=== PATIENT | male | born 1980 | race African-American/Black ===

== ENCOUNTER 2016-10-15 16:52 | Inpatient (IN) | payer OTHER ==
--- NOTE | ~2016-10-15 | PN ---
Unit #: [id number] #: [id number] Patient: FARHAD MARTINI [id number] [facility] [address] [place] [address] [id number] I MR#: [id number] NAME: FARHAD MARTINI. ROOM: [facility] Age: 36 Sex: M Admission Date: 10/15/2016 : 1980 Attending Physician: Stan Springer M.D. Admitting Physician: Stan Springer M.D. Primary Care Physician: Generic Doctor Not In System [facility] PROGRESS NOTES DATE 10/24/2016 DISCUSSION Farhad Martini is a 26-year-old, male seen on 10/24/2016. The patient interviewed, chart reviewed, obtained information from nursing staff. The patient continues to be guarded, paranoid. The patient isolative. Vital signs 98.6, 52, 16, 99/67. The patient was isolating in his room, flat affect, sad, dysphoric. Denied any complaints. The patient diagnosed with schizophrenia, cocaine use disorder. Complete review of systems is unremarkable. MENTAL STATUS EXAM The patient dressed casually in hospital attire. Attention span and concentration poor. Orientation to place and person. Mood and affect labile. Speech slow. Thought process circumstantial. The patient denied any thoughts of harming self or others but guarded, paranoid, isolative. Recent and remote memory poor. Insight and judgement poor. DIAGNOSIS Schizophrenia chronic paranoid type. Cocaine use disorder moderate. ASSESSMENT/PLAN Advised to continue with current medications and treatment protocol. If needed consider further adjustment of medication. Dictated by... Radha Lezama/dunia TD: 10/27/2016 03:18 JOB #: [id number] Unit #: [id number] #: [id number] Patient: FARHAD MARTINI [facility] PROGRESS NOTES Page 1 of 1 X Shon Espinla MD PROGRESS NOTE
--- NOTE | ~2016-10-15 | PA ---
Unit #: [id number] #: [id number] Patient: PHONG CASE [id number] [facility] [address] [place] [address] [id number] I MR#: [id number] NAME: PHONG CASE. ROOM: P254 Age: 36 Sex: M Admission Date: 10/15/2016 : 1980 Date of Assessment: Attending Physician: Stan Springer M.D. Admitting Physician: Stan Springer M.D. PSYCHIATRIC ASSESSMENT DATE OF SERVICE 10/16/2016. IDENTIFYING DATA Mr. Case is a 36-year-old single male, who is a resident of [place], [place], and was self-referred to the hospital. CHIEF COMPLAINT "Suicidal ideations and homicidal ideations." HISTORY OF PRESENT ILLNESS Mr. Case is a 36-year-old, single, unemployed, homeless male, who was brought in by [facility] for suicidal ideations and homicidal ideations onset by hearing male voices telling him to kill others and self at any means possible and reports that he has a plan for suicide to "cut my wrist with a knife." He also reports self-medicating himself with crack cocaine and as much "as I can get." He also reports that the cocaine has been helping him with the voices, but that he has been decompensating and now has been seen to be a danger to self and others and as such, a recommendation for inpatient level of care for safety and stabilization was made. SUBSTANCE ABUSE HISTORY The patient reports extensive history of cocaine dependence stating that he has been using cocaine since he was 13 years old and "as much as I can get." He denies any other substance abuse. PAST PSYCHIATRIC HISTORY The patient has had a [facility] of [facility], and review of the medical records indicate that he has been diagnosed and treated for bipolar disorder and is currently on Depakote, but is not taking any other psychotropic medications and is not seeing a psychiatrist. PAST MEDICAL HISTORY Epilepsy. ALLERGIES Trilafon, Risperdal, and Thorazine. PERSONAL AND SOCIAL HISTORY A 36-year-old male, who reports that he is single, unemployed, and homeless and has poor social support system. Unit #: [id number] #: [id number] Patient: PHONG CASE MENTAL STATUS EXAMINATION Young male, who was casually dressed with fair personal hygiene, appears to be in no acute distress or discomfort. He was awake and alert on interaction with intact orientation to time, place, and person. His mood was anxious and depressed with a congruent affect. His speech was slow and restricted in content. His thought processes were disorganized with some looseness of associations and flight of ideas and suicidal ideations as well as auditory and visual hallucinations. His insight and judgment remain significantly impaired. DIAGNOSTIC IMPRESSION Psychiatric: Major depressive disorder, recurrent, moderate, with psychosis and cocaine dependence, moderate. Medical: None. Stressors: Moderate psychosocial stressors. TREATMENT PLAN 1. The patient has presented with a history of substance abuse and mood disorder and psychosis and has been decompensating and will need inpatient hospitalization for safety and stabilization. We will start him back on his home medications. We will adjust the medications and monitor response. 2. Supportive therapy was provided to the patient. 3. Safe, structured, and nourishing environment will be provided. ESTIMATED LENGTH OF STAY 5 to 7 days. ABILITY TO HELP SELF Limited. WILLINGNESS TO HELP SELF The patient appears to be willing to help self. STRENGTHS 1. Communicative. 2. Cooperative. PROBLEMS 1. Chronic dysphoric symptoms. 2. Poor social support system. DISCHARGE CRITERIA This will be contingent upon the patient's ability to show resolution of his depression and psychosis and his ability to stay safe to himself, particularly after discharge from the hospital. Dictated by... Radha Mathias/sravanthi TD: 10/16/2016 16:14 JOB #: [id number] Unit #: [id number] #: [id number] Patient: PHONG CASE PSYCHIATRIC ASSESSMENT Page 1 of 1 X Stan Springer MD PSYCHIATRIC ASSESSMENT
--- NOTE | ~2016-10-15 | PN ---
Unit #: [id number] #: [id number] Patient: PHONG CASE [id number] [facility] [address] [place] [address] [id number] I MR#: [id number] NAME: PHONG CASE. ROOM: P254 Age: 36 Sex: M Admission Date: 10/15/2016 : 1980 Attending Physician: Stan Springer M.D. Admitting Physician: Stan Springer M.D. Primary Care Physician: Sienna Doctor Not In System [facility] PROGRESS NOTES DATE 10/17/2016 DISCUSSION Mr. Case is a 36-year-old, male who was seen today and chart was reviewed and case was discussed with the staff. He has been anxious, withdrawn and rather seclusive to himself. Meanwhile, he has been cooperative with treatment recommendations. He has been taking the medication and tolerating them fairly well with no reported side effects. MENTAL STATUS EXAM Young male who was casually dressed with fair personal hygiene, appears to be in no acute distress or discomfort. He was awake and alert with intact orientation. His mood was anxious with congruent affect. He denies any suicidal or homicidal ideation. His insight and judgement remains slightly impaired. TREATMENT PLAN 1. We will continue him on his current treatment protocol. We will monitor his response to the medication and make further adjustments as needed. 2. We will continue to follow up. Dictated by... Radha Mathias/dunia TD: 10/18/2016 22:17 JOB #: [id number] Unit #: [id number] #: [id number] Patient: PHONG CASE [facility] PROGRESS NOTES Page 1 of 1 X Stan Springer MD X PROGRESS NOTE
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
--- NOTE | ~2016-10-15 | PN ---
Unit #: [id number] #: [id number] Patient: PHONG CASE [id number] [facility] [address] [place] [address] [id number] I MR#: [id number] NAME: PHONG CASE. ROOM: P254 Age: 36 Sex: M Admission Date: 10/15/2016 : 1980 Attending Physician: Stan Springer M.D. Admitting Physician: Stan Springer M.D. Primary Care Physician: Sienna Doctor Not In System [facility] PROGRESS NOTES DATE 10/22/2016 DISCUSSION Mr. Case is a 36-year-old male who was seen today and chart was reviewed and case was discussed with the staff. He has been anxious, withdrawn and seclusive to himself as he was laying in his bed and reports still having suicidal thoughts but was unable to elaborate any triggers or reasons for him having suicidal thoughts except that he states he feels depressed and feels hopeless and helpless. Meanwhile, he has been taking medications and has been tolerating them fairly well with no reported side effects. MENTAL STATUS EXAMINATION Young male who was casually dressed with fair personal hygiene and appears to be in no acute distress or discomfort. He was awake and alert on interaction with intact orientation. His mood was anxious and depressed with congruent affect. His speech is slow and restricted in content. He reports having suicidal ideations but denies any homicidal ideations. His insight and judgement remains slightly impaired. TREATMENT PLAN 1. Will adjust his medications and increase his Celexa to 40 mg daily and will also switch his Haldol to Seroquel 100 mg at bedtime. Will monitor response and make further adjustments as needed. 2. Will continue to follow up. Dictated by... Radha Mathias/nathan TD: 10/25/2016 08:41 JOB #: [id number] Unit #: [id number] #: [id number] Patient: PHONG CASE [facility] PROGRESS NOTES Page 1 of 1 X Stan Springer MD X PROGRESS NOTE
--- NOTE | ~2016-10-15 | PN ---
Unit #: [id number] #: [id number] Patient: PHONG CASE [id number] [facility] [address] [place] [address] [id number] I MR#: [id number] NAME: PHONG CASE. ROOM: P254 Age: 36 Sex: M Admission Date: 10/15/2016 : 1980 Attending Physician: Stan Springer M.D. Admitting Physician: Stan Springer M.D. Primary Care Physician: Generic Doctor Not In System [facility] PROGRESS NOTES SUBJECTIVE Mr. Case is a 36-year-old male, who was seen today and chart was reviewed, and case was discussed with the staff. He has been anxious and withdrawn, though has not shown any . MENTAL STATUS EXAMINATION Young male who was casually dressed with fair personal hygiene, appears to be in no acute distress or discomfort. He was awake and alert on interaction with intact orientation. His mood was anxious with a congruent affect. His insight and judgment remain slightly impaired. TREATMENT PLAN 1. We will continue him on his current treatment protocol and we will monitor his response to medications and make further adjustments as needed. 2. We will continue to follow up. Dictated by... Radha Mathias/sravanthi TD: 10/26/2016 05:31 JOB #: [id number] [facility] PROGRESS NOTES Page 1 of 1 X Stan Springer MD PROGRESS NOTE
--- NOTE | ~2016-10-15 | DS ---
Unit #: [id number] #: [id number] Patient: PHONG CASE [id number] [facility] [address] [place] [address] [id number] I MR#: [id number] NAME: PHONG CASE. ROOM: P254 Age: 36 Sex: M Admission Date: 10/15/2016 : 1980 Discharge Date: 10/26/2016 Attending Physician: Stan Springer M.D. Primary Care Physician: Generic Doctor Not In System DISCHARGE SUMMARY ADDENDUM Mr. aCse was scheduled to be discharged on 10/19/2016, however, discharge planning was canceled as the patient stated that he was still feeling depressed and suicidal and as such, Celexa was maintained and increased to 40 mg a day and his Haldol was switched to Seroquel 100 mg at bedtime and he was closely monitored. He was taking the medications regularly and was tolerating them fairly well and was cooperative with treatment recommendation and as such, it was decided that he will be discharged home and will continue treatment on an outpatient basis. DISCHARGE MEDICATIONS Celexa 40 mg a day for depression, Seroquel 100 mg at bedtime for depression, Depakote 750 mg b.i.d. for mood disorder. DISCHARGE CONDITION Stable. PROGNOSIS Fair. Dictated by... Radha Mathias/sravanthi TD: 10/26/2016 07:28 JOB #: [id number] DISCHARGE SUMMARY Page 1 of 1 X Stan Springer MD X DISCHARGE SUMMARY
--- NOTE | ~2016-10-15 | DS ---
Unit #: [id number] #: [id number] Patient: PHONG MARTINI [id number] [facility] [address] [place] [address] [id number] I MR#: [id number] NAME: PHONG MARTINI. ROOM: P254 Age: 36 Sex: M Admission Date: 10/15/2016 : 1980 Discharge Date: 10/19/2016 Attending Physician: Stan Springer M.D. Primary Care Physician: Generic Doctor Not In System DISCHARGE SUMMARY IDENTIFYING DATA Mr. Ordonez is a 36-year-old single male who is a resident of [place], [place] and was self-referred to the hospital. DISCHARGE DIAGNOSES Psychiatric: Major depressive disorder, recurrent, moderate, with psychosis. Cocaine dependence, moderate. Medical: None. Stressors: Moderate psychosocial stressors. HISTORY OF PRESENT ILLNESS Please see initial evaluation for details. PAST PSYCHIATRIC HISTORY Please see initial evaluation for details. PAST MEDICAL HISTORY Please see initial evaluation for details. HOSPITAL COURSE The patient was [facility] and was oriented to the hospital environment. Routine p.r.n. medications were initiated and he was started back on his home medication. Medications were adjusted, and Haldol and Celexa were started for depression and psychosis. He was taking the medications regularly and was tolerating them fairly well and was able to show a decent and therapeutic response and was willing to continue treatment on an outpatient basis. DISCHARGE MEDICATIONS Haldol 5 mg at bedtime for psychosis and Celexa 20 mg a day for depression. DISCHARGE CONDITION Stable. PROGNOSIS Fair. Dictated by... Stan Springer M.D. Unit #: [id number] #: [id number] Patient: PHONG MARTINI IAA/modl TD: 10/19/2016 07:07 JOB #: [id number] DISCHARGE SUMMARY Page 1 of 1 X Stan Springer MD DISCHARGE SUMMARY
--- NOTE | ~2016-10-15 | PN ---
Unit #: [id number] #: [id number] Patient: PHONG CASE [id number] [facility] [address] [place] [address] [id number] I MR#: [id number] NAME: PHONG CAES. ROOM: P254 Age: 36 Sex: M Admission Date: 10/15/2016 : 1980 Attending Physician: Stan Springer M.D. Admitting Physician: Stan Springer M.D. Primary Care Physician: Sienna Doctor Not In System [facility] PROGRESS NOTES DATE October 20, 2016 DISCUSSION Mr. Case is a 36-year-old, -[place] male who was seen today and chart was reviewed. His case was discussed with the staff. He has been anxious, withdrawn, depressed, and (1) to himself. Patient was laying in his bed and reports not feeling good and has been voicing suicidal thoughts and has been unable to contract for safety and reports (2) outside of the hospital and feelings of hopelessness and helplessness. MENTAL STATUS EXAMINATION Young -[place] male who was casually dressed with a fair personal hygiene and appears to be in no acute distress or discomfort. He was awake and alert on interaction with intact orientation. His mood was anxious and depressed with a congruent affect. Speech is slow and goal-directed. He reports having suicidal ideation, but denies any homicidal ideation. His insight and judgement remain significantly impaired. TREATMENT PLAN 1. We will continue on his current medications and treatment protocol. Will monitor his response to the medications and will make further adjustments as needed. 2. Will continue to follow up. Dictated by... Radha Mathias/lynne TD: 10/22/2016 08:06 JOB #: [id number] Unit #: [id number] #: [id number] Patient: PHONG CASE [facility] PROGRESS NOTES Page 1 of 1 X Stan Springer MD PROGRESS NOTE
--- NOTE | ~2016-10-15 | PN ---
Unit #: [id number] #: [id number] Patient: FARHAD MARTINI [id number] [facility] [address] [place] [address] [id number] I MR#: [id number] NAME: FARHAD MARTINI. ROOM: P254 Age: 36 Sex: M Admission Date: 10/15/2016 : 1980 Attending Physician: Stan Springer M.D. Admitting Physician: Radha Mathias PROGRESS NOTES DATE OF SERVICE: 10/23/2016 DISCUSSION Farhad Martini is a 36-year-old male, seen on 2-Jayshree. The patient reported that he is still having suicidal ideation, feeling sad, depressed, trouble falling asleep, staying asleep. The patient's vital signs are stable; temperature 97.5, pulse 62, respirations 16, blood pressure 106/72. The patient is withdrawn, isolative, flat affect, anxious. REVIEW OF SYSTEMS Complete review of systems unremarkable. MENTAL STATUS EXAMINATION General appearance, the patient is dressed casually. Attention span and concentration, poor. Oriented in time, place, and person. Mood and affect were sad and depressed. Speech, regular rate. Thought process, goal directed. The patient denied any thoughts of harming self or others, but still reporting feeling sad, depressed, trouble sleeping, seclusive, isolative. Recent and remote memory, poor. Insight and judgment, poor. DIAGNOSES 1. Schizophrenia, chronic paranoid type. 2. Cocaine use disorder, moderate. ASSESSMENT AND PLAN Recommending at this time to continue with current medication with a plan to add trazodone 75 mg at bedtime for sleep. We will continue to monitor. If needed, consider further adjustment of medication. Dictated by... Radha Lezama/sravanthi TD: 10/24/2016 01:49 JOB #: [id number] Unit #: [id number] #: [id number] Patient: FARHAD MARTINI PROGRESS NOTES Page 1 of 1 X Shon Espinal MD PROGRESS NOTE
--- NOTE | ~2016-10-15 | PN ---
Unit #: [id number] #: [id number] Patient: PHONG CASE [id number] [facility] [address] [place] [address] [id number] MR#: [id number] NAME: PHONG CASE. ROOM: P254 Age: 36 Sex: M Admission Date: 10/15/2016 : 1980 Attending Physician: Stan Springer M.D. Admitting Physician: Stan Springer M.D. Primary Care Physician: Sienna Doctor Not In System [facility] PROGRESS NOTES DATE 10/21/2016 DISCUSSION Mr. Case is a 36-year-old, male who was seen today and chart was reviewed and case was discussed with the staff. He has been anxious, withdrawn and rather seclusive to himself. Meanwhile, he has been cooperative with treatment recommendations. He has been taking medications and tolerating them fairly well with no reported side effects. MENTAL STATUS EXAM Young male who was casually dressed with fair personal hygiene, appears to be in no acute distress or discomfort. He was awake and alert on interaction with intact orientation. His mood was anxious and depressed with congruent affect. His speech was slow and restricted in content. He reports having suicidal ideation but denies any homicidal ideations. His insight and judgement remains slightly impaired. TREATMENT PLAN 1. We will continue him on his current medications and treatment protocol. We will monitor his response and make further adjustments as needed. 2. We will continue to follow up. Dictated by... Radha Mathias/dunia TD: 10/24/2016 21:16 JOB #: [id number] Unit #: [id number] #: [id number] Patient: PHONG CASE [facility] PROGRESS NOTES Page 1 of 1 X Stan Springer MD PROGRESS NOTE
--- NOTE | ~2016-10-15 | PN ---
Unit #: [id number] #: [id number] Patient: PHONG CASE [id number] [facility] [address] [place] [address] [id number] I MR#: [id number] NAME: PHONG CASE. ROOM: P254 Age: 36 Sex: M Admission Date: 10/15/2016 : 1980 Attending Physician: Stan Springer M.D. Admitting Physician: Stan Springer M.D. Primary Care Physician: Sienna Doctor Not In System [facility] PROGRESS NOTES DATE 10/18/2016 DISCUSSION Mr. Case is a 36-year-old, male who was seen today and chart was reviewed and case was discussed with the staff. He has been anxious, withdrawn rather seclusive to himself. Meanwhile, he has been cooperative with treatment recommendations. He has been taking the medication and tolerating them fairly well with no reported side effects. MENTAL STATUS EXAM Young male who was casually dressed with fair personal hygiene, appears to be in no acute distress or discomfort. He was awake and alert on interaction with intact orientation. His mood was anxious with congruent affect. His speech was slow and goal directed. He denies any suicidal or homicidal ideation. Also, denies any auditory or visual hallucinations. His insight and judgement remains slightly impaired. TREATMENT PLAN 1. We will continue him on his current medications and treatment protocol. We will monitor his response and make further adjustments as needed. 2. We will continue to follow up. Dictated by... Radha Mathias/dunia TD: 10/19/2016 22:35 JOB #: [id number] Unit #: [id number] #: [id number] Patient: PHONG CASE [facility] PROGRESS NOTES Page 1 of 1 X Stan Springer MD PROGRESS NOTE
[2016-10-16 13:06] LABS: ALBUMIN SERUM 3.7 g/dL (3.5-5.0); BILIRUBIN,TOTAL 0.6 mg/dL (0.2-2.0); BUN/CREATININE RATIO 15.45; CALCIUM SERUM 8.8 mg/dL (8.4-10.2); CREATININE SERUM 1.1 mg/dL (0.6-1.4); GLOM FILT RATE Estimated 99.6 mL/min (>60); POTASSIUM 4.3 mmol/L (3.5-5.1); PROTEIN TOTAL SERUM 6.2 g/dL (6.0-8.3)
[2016-10-16 13:07] LABS: URINE APPEARANCE CLEAR; URINE BILIRUBIN NEG (NEG); URINE BLOOD NEG (NEG); URINE COLOR YELLOW; URINE GLUCOSE NEG (NEG); URINE KETONE TRACE (NEG); URINE LEUKOCYTE ESTERASE 1+ (NEG); URINE NITRATE NEG (NEG); URINE PROTEIN NEG (NEG); URINE SPECIFIC GRAVITY 1.021 (1.003-1.035); URINE UROBILINOGEN 0.2 MG/DL (NEG)
[2016-10-16 13:10] LABS: U HYALINE CASTS AUWI 0-2 /[LPF]; URBCS1 AUWI 0-2 /[HPF] (0-2); URINE BACTERIA AUWI NEG (NEGATIVE); URINE SQUAMOUS EPITHELIAL CELL NONE SEEN /[HPF]
[2016-10-16 13:17] LABS: AMPHETAMINE NEG (NEG); BARBITURATES NEG (NEG); BENZODIAZEPINES NEG (NEG); COCAINE POS (NEG); MARIJUANA NEG (NEG); OPIATES NEG (NEG); TRICYCLIC ANTIDEPRESSANTS NEG (NEG); U METHADONE NEG (NEG)
[2016-10-18 09:33] LABS: BASOPHIL% 0.3 % (0-2.5); EOSINOPHIL% 0.6 % (0.0-7.0); HEMATOCRIT 47.3 % (38.0-50.0); HEMOGLOBIN 15.2 gm/dL (13.0-16.0); LYMPHOCYTE# 2.2 X10e3 (1.0-3.5); LYMPHOCYTE% 46.8 % (17.0-45.0); MEAN CELL VOLUME 83.4 FL (83-96); MEAN CORPUSCULAR HEMOGLOBIN 26.9 PG (28-34); MEAN CORPUSCULAR HGB CONC 32.2 g/dL (30-36); MEAN PLATELET VOLUME 10.3 FL (6.5-11.5); MONOCYTE# 0.2 X10e3 (0-1.0); NEUTROPHIL# 2.3 X10e3 (1.5-7.1); NEUTROPHIL% 47.3 % (40-75); PLATELET COUNT 127 X10e3 (140-420); RED BLOOD COUNT 5.67 X10e (3.90-5.60); RED CELL DISTRIBUTION WIDTH 14.5 % (11.0-15.5); WHITE BLOOD COUNT 4.8 X10e3 (4.0-10.5)
[2016-10-18 09:41] LABS: DIFF IND NO
[2016-10-18 09:59] LABS: THYROID STIMULATING HORMONE 0.76 uIU/ml (0.34-5.60)
[2016-10-18 10:06] LABS: FREE THYROXIN (T4) 0.57 ng/dL (0.58-1.64)
== END 2016-10-26 13:00 | disposition home or self-care (01) | DRG 885 ==
LOC: P2L 16:52
PROVIDERS: Psychiatry & Neurology Psychiatry
DX: F33.1 Major depressive disorder, recurrent, moderate (principal); F14.20 Cocaine dependence, uncomplicated; E78.5 Hyperlipidemia, unspecified; J44.9 Chronic obstructive pulmonary disease, unspecified; F17.210 Nicotine dependence, cigarettes, uncomplicated; Z79.82 Long term (current) use of aspirin; F20.0 Paranoid schizophrenia
CPT/HCPCS: 80053; 80307; 81003; 84439; 84443; 85025